=== PATIENT | male | born 1975 | race Caucasian/White ===

== ENCOUNTER → 2017-04-30 | Outpatient (CLI) | payer BC ==
--- NOTE | 2017-05-03 08:26 | TST ---
[place] [address] T[facility]MI[facility] STRESS TEST Name: ARI PHILLIPS Room: [facility] González#: [id number] Admission: 04/30/17 Attend Phys: Anil Youngblood Discharge: Date of : 73 Date of Service: 04/30/17 1528 Report #: [id number] THIS REPORT FOR: //name// CC: Anil Youngblood DO DATE OF SERVICE: 04/30/2017 EXERCISE STRESS TEST INDICATIONS: Exercise stress test was requested in this patient with a history of hypertension. PROCEDURE: Exercise stress test was performed in this patient using a Favian protocol. FINDINGS: The patient had a pretest heart rate of 75, blood pressure 129/81. The patient was able to exercise for 12 minutes and 49 seconds achieving a peak heart rate of 174, which is greater than 90% of maximum predicted heart rate for the patient's age. Peak blood pressure was 152/86. In recovery, the patient had a heart rate of 98, blood pressure 132/80. The patient denied chest discomfort. Exercise was terminated after the patient requested. The patient's resting ECG showed a sinus rhythm with nonspecific T-wave changes noted at baseline. With exercise, the patient developed downsloping ST segment depression in leads II, III, aVF as well as V5 and V6. There were no arrhythmias noted with exercise. At peak exercise, the patient was noted to have [address] segment depression in leads II, III, aVF as well as 1.[address] segment depression in V5 and V6. IMPRESSION: 1. Resting ECG abnormality. 2. Excellent exercise tolerance. 3. No chest pain with exercise. 4. Nonspecific ST segment changes noted with exercise. 5. Nondiagnostic exercise stress test for myocardial ischemia secondary to baseline ECG changes. 6. Indeterminate exercise stress test for myocardial ischemia. 7. Indeterminate risk of future cardiac events. 8. Clinically indicated, I would consider stress testing with imaging to improve the specificity of stress testing to rule out ischemic heart disease. <ELECTRONICALLY SIGNED> By: Kory Sandoval MD, FACC 05/03/17 0826 [id number] Kory Sandoval MD, FACC /nt
== END ==
LOC: M.CRD 12:36
DX: I25.9 Chronic ischemic heart disease, unspecified (principal); I10 Essential (primary) hypertension